=== PATIENT | female | born 1990 | race Caucasian/White ===

== ENCOUNTER 2023-12-30 13:56 | Emergency (ER) | payer BC, SELFPAY ==
--- NOTE | ~2023-12-30 | XR_ITS ---
EXAMINATION: XR chest 2V DATE: 12/30/2023 14:48 INDICATION: Productive cough and weakness TECHNIQUE: PA and lateral views of the chest were obtained. COMPARISON: None FINDINGS: The lungs are clear with no focal airspace opacities, pulmonary edema, pleural effusion or pneumothor ax. The cardiomediastinal silhouette is normal. Visualized bones and soft tissues are unremarkable. IMPRESSION: 1. Normal chest radiograph. Reviewed, dictated and finalized at location A. IMPRESSION: 1. Normal chest radiograph.
--- NOTE | 2023-12-30 13:57 | ED.URI ---
HPI - URI/Sore Throat General Chief Complaint: Upper Respiratory Infection Stated Complaint: Cough/feels weak Time Seen by Provider: 12/30/23 13:57 Source: patient Mode of arrival: ambulatory Limitations: no limitations History of Present Illness HPI Narrative: Jewell is a 33-year-old female patient presenting to clinic today with complaints of cough and feeling weak. She reports that she has a productive cough with some brown phlegm and a sore throat. Does have some chest heaviness but denies any chest pain. Denies any shortness of breath. Has this heaviness sensation in her right shoulder mid to low back and to the left side of her chest. Denies any recent injury. Denies any fever, chills, body aches. Denies any abdominal pain or urinary symptoms. Denies heavy menses. Last menstrual period was December 06. She denies any chance of . Rates the discomfort in her throat and heaviness a 3/10. No new changes in medications. Has had exposure to influenza B last week. No cardiac history, heavy menses, electrolyte imbalance, or hypoglycemia. MD elicited complaint: cough, sore throat and other (Weakness) Related Data Home Medications Medication Instructions Recorded Confirmed escitalopram oxalate 10 mg tablet 20 mg PO BID 02/25/23 12/30/23 eszopiclone 2 mg tablet 2 mg PO ONCE 02/25/23 12/30/23 lamotrigine 100 mg tablet 150 mg PO DAILY 02/25/23 12/30/23 prazosin 1 mg capsule 2 mg PO DAILY 02/25/23 12/30/23 dextromethorphan IR 45 2 tablet PO DAILY 12/30/23 12/30/23 mg-bupropion ER 105 mg biphasic tablet (Auvelity) Allergies Allergy/AdvReac Type Severity Reaction Status Date / Time No Known Allergies Allergy Verified 12/30/23 14:18 Review of Systems Review of Systems: Pertinent positives per HPI. Patient denies any rash, headache, visual changes, dizziness, shortness of breath, chest pain, palpitations, nausea, vomiting, diarrhea, constipation, abdominal pain, or any urinary issues. [facility] Social History Social History (Updated 02/25/23 @ 10:59 by Savannah Cedeño MA) Smoking status: Never smoker Alcohol intake: current Substance use: never Substance use type: does not use Lack of Transportation: No Lack of Food: Never True Current Housing: I Have Housing Concerned About Future Housing: No Difficulty Paying Gas/Electric Bills: No Difficulty Paying for Meds: No Currently Unemployed: No Education: Bachelor's Degree Difficulty w/ Childcare or Family Care: No Living arrangements: alone Occupation/Education: occupation Gender identity (if verbalized by the patient): Female Sexual Orientation (if Verbalized by the Patient): Straight or Heterosexual Comments At the time of my signature, I reviewed and agree with the nursing past medical, surgical, social, and family history. There is no relevant family history pertinent to the patient complaint. Exam Narrative: General: Well-developed, well nourished, in no apparent distress Head: Normocephalic, atraumatic Eyes: Pupils equally round and reactive to light bilaterally, EOM intact, sclera and conjunctive clear, no discharge, lids normal Ears: TMs intact and clear, ear canals clear, no drainage, grossly hearing normal. Nose: Nares patent, no discharge, no inflammation, no sinus tenderness. Mouth: Oral pharynx without lesions or masses, good dentition, MMM. Neck: Supple, trachea midline, no enlargement of anterior or posterior cervical nodes, no thyroid masses or goiter palpable. Cardio: Regular rate and rhythm, s1 and s2 normal, no murmur appreciated. Resp: Clear to auscultation bilaterally, no rhonchi, rales, wheezing or rubs Course Course Emergency Course: Portions of this record may have been created with voice recognition software. Level of Care: Express Care Visit Vital Signs Vital signs: Vital Signs Temperature 36.6 C 12/30/23 14:22 Pulse Rate 99 12/30/23 14:22 Respiratory Rate 16 05
[2023-12-30 14:22] VITALS: BP 107/71; PULSE 99; RESP 16; TEMP 36.6; O2SAT 99
[2023-12-30 14:44] LABS: Glucose Point of Care 115 mg/dl (65-105)
== END 2023-12-30 15:15 | disposition home or self-care (01) ==
PROVIDERS: Emergency Provider Nurse Practitioner Family; PCP Family Medicine
DX: B34.9 Viral infection, unspecified (principal); J02.9 Acute pharyngitis, unspecified; J06.9 Acute upper respiratory infection, unspecified; Z20.822 Contact with and (suspected) exposure to COVID-19
CPT/HCPCS: 71046; 82948; 87081; 87426; 87804; 87880; 99213; G0463

== ENCOUNTER 2025-05-13 13:17 | Outpatient (CLI) | payer BC, SELFPAY ==
--- NOTE | ~2025-05-13 | US_ITS ---
EXAMINATION: US OB <= 14 weeks fetus DATE: 05/13/2025 13:48 INDICATION: Uncertain dating of during first trimester TECHNIQUE: Real-time pelvic ultrasound utilizing transabdominal probe was performed. The interpreting radiologist was not present for the study. COMPARISON: None. FINDINGS: The uterus measures 11.5 x 5.8 x 9.6 cm. There is an intrauterine gestational sac. A yolk sac and pole are identified. The crown rump length measures 3.4 cm, which correlates with an estimated gestational age of 10 weeks and 2 days. heart motion is identified measuring 159 beats per minute (bpm) by M-mode Doppler. The right and left ovaries are not visualized. There is no free fluid in the pelvis. IMPRESSION: 1. Single living fetus with heart rate of 159 bpm. 2. Gestational age by ultrasound of 10 weeks 2 day(s) +/- 6 day(s) with ultrasound estimated date of delivery (NICOLASA) of 12/07/2025. Reviewed, dictated and finalized at location A. IMPRESSION: 1. Single living fetus with heart rate of 159 bpm. 2. Gestational age by ultrasound of 10 weeks 2 day(s) +/- 6 day(s) with ultras ound estimated date of delivery (NICOLASA) of 12/07/2025.
== END 2025-05-13 13:18 | disposition home or self-care (01) ==
LOC: MICIMG 13:18
PROVIDERS: PCP Family Medicine
DX: Z36.87 Encounter for antenatal screening for uncertain dates (principal)
CPT/HCPCS: 76801

== ENCOUNTER 2025-06-03 19:04 | Emergency (ER) | payer BC, SELFPAY ==
--- OUTSIDE RECORDS SUMMARY | 2001-10-11 03:30 | XMS_ITS | Continuity of Care Document ---
Author Organization [facility] Address [address] [place] [address] [address] [place] [address] Phone Care Team Providers Care Office Spec Name Role Phone Misha Kline Unavailable Unavailable Advance Directives Directive Yes / No Effective Date File Name No Information Encounters Encounter Description Practice Location Reason(s) For Visit Diagnoses Date Provider Providers Copied on Encounter [facility], [address], [place], [place], [id number], [place] tel:[phone] [facility] No Information 2 Raisa Cabral. [address], [address], [place], [place], [facility], [place]. tel:[phone] Referring Provider: [facility] [address] [place] [address], [place], [place], [facility]. tel:[phone] Family History Family Member Type Diagnosis Age At Onset No Information Payers Payer name Insurance type Covered constitution party ID Authoriza tion(s) No Information Social History Type Description Quantity Date Captured Comments Sex Female Smoking Status No Information Chief Complaint And Reason For Visit No Information Reason For Referral Reason For Referral No Information History Of Present Illness Encounter Date Complaint History Of Prese nt Illness No Information Functional Status Date Functional Assessmen t No Information Instructions Date Instruction Additional Infor mation No Information Assessments Type Assessment Date No Information Patient Care Teams Name Effective Dates (start - stop) Status Members No Information
--- OUTSIDE RECORDS SUMMARY | 2025-05-31 08:30 | XMS_ITS ---
Author Organization [facility] [employer] [facility] Address [facility] [address] [facility] [address] [place] [address] Care Team Providers Care Mid Teacher Name Role Phone Kal CHOU, Marco Primary Care Provider UnavailBernard Webster Unavailable [phone] REASON FOR VISIT 1 month f/u Social History Sex Assigned At : Social History Observation Description Sex Assigned At Female Encounters Encounter Location Date Provider Diagnosis [facility] [id number] [facility] [address] [place] [address] 05/31/2025 Bernard Langley Plan Of Treatment No Information Progress Notes * FILI CHESTER RDOB:1990 (35 yo F)Acc No.[id number]:05/31/2025 Patient: FILI TOLENTINO Provider: PADMA HENDERSON :1990 A ge:35 Y S ex:Female Date:05/31/2025 Address:[address] [place], [place] [id number] Pcp:Marco Bowden MD Subjective: * Chief Complaints: * 1 month f/u * Electronic signature of PADMA Diaz on 06/03/2025 at 07:28 PM CDT Sign off status: Pending * Provider: PADMA HENDERSON Date: Generated for Printi ng/Faxing/eTransmitting on: 07:28 PM CDT
[2025-06-03 19:15] VITALS: BP 112/71; PULSE 83; RESP 18; TEMP 36.4; O2SAT 98
--- OUTSIDE RECORDS SUMMARY | 2025-06-03 19:28 | XMS_ITS | Clinical Summary ---
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[employer] Gender Identity Not on file Sexual Orientation Not on file Plan of Treatment Health Maintenance Due Date Last Done Comments Hepatitis C Virus (HCV) Screening 1990 TdaP Immunization 1990 Hepatitis B Immunization (1 of 3 - 19+ 3-dose series) 2010 Pap Smear 2012 Human Papillomavirus (HPV) Immunization (1 - 3-dose SCDM series) 2018 Cervical Cancer Screening (CCS) 2021 HPV/Cotest 2021 Influenza Immunization (#1) 2025 SARS-COV-2 Immunization ( season) 2025 08/13/2020 Respiratory Syncytial Virus (RSV) Immunization (Adult) (1 - 1-dose 75+ series) 2066 Meningococcal Immunization (ACWY) Aged Out No longer eligible based on patient's age to complete this topic Pneumococcal Immunization Combined Aged Out No longer eligible based on patient's age to complete this topic Rotavirus Immunization Aged Out No lo nger eligible based on patient's age to complete this topic Insurance [employer] on file
--- OUTSIDE RECORDS SUMMARY | 2025-06-03 19:28 | XMS_ITS | Patient Health Record ---
Author Organization [facility] [employer] Address [address] [facility] [address] [place] [address] Care Team Providers Care Tax Accounting Manager Name Role Phone Kal CHOU, Marco Primary Care Provider Unavailab Bernard West Unavailable [phone] Bertha Kohler Unavailable [phone] Allergies Allergen (clinical drug ingredient) Drug/Non Drug Allergy documented on EMR Reaction Allergy Type Onset Date Status Gluten Gluten Unknown Allergy 12/02/2023 Active Reason For Referral No Information Medications Medication SIG (Take, Route, Frequency, Duration) Notes Start Date End Date Status Ondansetron HCl 4 MG Tablet 1 tablet Orally Once a day Active hydrOXYzine HCl 25 MG Tablet Oral 12/30/2023 Active Prazosin HCl 2 mg Capsule TAKE 1 CAPSULE BY MOUTH EVERY NIGHT AT BEDTIME daily; Duration: 30 days 08/31/2025 Active SUMAtriptan Succinate 100 MG Tablet Oral; Duration: 7 Days Not- Taking Escitalopram Oxalate 10 MG Tablet 1 tablet Oral Once a day; Duration: 90 days Active lamoTRIgine 100 MG Tablet 1 tablet Oral twice a day; Duration: 30 days 05/03/2025 Active lamoTRIgine 100 mg Tablet TAKE 1 & 1/2 TABLETS BY MOUTH DAILY; Duration: 30 Active Immunizations Vaccine Route Administration Date Status Comme nts Moderna Covid-19 Vaccine 1st dose Unknown 08/13/2020 Ad ministered Moderna Covid-19 Vaccine 1st dose Unknown 09/11/2020 Ad ministered Moderna Covid-19 Vaccine 1st dose Unknown 07/28/2021 Ad ministered Social History Tobacco Use: Social History Observation Description Date Details (start date - stop date) Never Smoker NA - NA Sex Assigned At : Social History Observation Description Sex Assigned At Female Social History Miscellaneous: Social Info Question Answer Notes Advance Care Planning Are you your own decision-maker Yes Do you have Power of Data Processing Supervisor for Health or Medi [place]? No Tobacco Use: Social Info Question Answer Notes Tobacco Control (Standard) Tobacco use: Nonsmoker Additional Details Category Social Info Options Details Migrated Social History Migrated Social History Alcohol Intake: Occasional 01/01/2021,Tobacco Years: Never smoker 01/01/2021 Problems Problem Type SNOMED Code ICD Code Onset Dates Problem Status W/U Status Risk Notes Problem Moderate recurrent major depression (43511204) Major depressive disorder, recurrent, moderate (F33.1) 4 Active confirmed Problem Generalized anxiety disorder (27753837) Generalized anxiety disorder (F41.1) 4 Active confirmed Problem Posttraumatic stress disorder (74449879) Post-traumatic stress disorder, chronic (F43.12) 4 Active confirmed Problem Insomnia disorder related to another mental disorder (58075426) Insomnia due to other mental disorder (F51.05) 4 Active confirmed Problem Panic disorder (763139754) Panic disorder [episodic paroxysmal anxiety] without agoraphobia (F41.0) 4 Active confirmed Vital Signs Heart Rate 79 /min 05/03/2025 Height-cm 151.13 cm 05/03/2025 Blood pressure diastolic 77 mm Hg 05/03/2025 Weight-kg 57.15 kg 05/03/2025 Height 59.50 in 05/03/2025 Blood pressure systolic 121 mm Hg 05/03/2025 Weight 126 lbs 05/03/2025 BMI 25.02 kg/m2 05/03/2025 Encounters Encounter Location Date Provider Diagnosis [employer] [address] [address] 06/06/2024 Bernard Langley Panic disorder [episodic paroxysmal anxiety] without agoraphobia F41.0 ; Major depressive disorder, recurrent, moderate F33.1 ; Post-traumatic stress disorder, chronic F43.12 ; Generalized anxiety disorder F41.1 and Insomnia due to other mental disorder F51.05 [employer] [address] [place] [address] 07/04/2024 Bernard Langley Panic disorder [episodic paroxysmal anxiety] without agoraphobia F41.0 ; Major depressive disorder, recurrent, moderate F33.1 ; Post-traumatic stress disorder, chronic F43.12 ; Generalized anxiety disorder F41.1 and Insomnia due to other mental disorder F51.05 [facility], [place] [address] [place] [address] 08/10/2024 Bernard Langley Panic disorder [episodic paroxysmal anxiety] without agoraphobia F41.0 ; Major depressive disorder, recurrent, moderate F33.1 ; Post-traumatic stress disorder, chronic F43.12 ; Generalized anxiety disorder F41.1 and Insomnia due to other mental disorder F51.05 [facility], [place] [address] [place] [address] 09/07/2024 Bernard Langley [place] [id number] [place] [address] 09/10/2024 Bernard Langley Panic disorder [episodic paroxysmal anxiety] without agoraphobia F41.0 ; Major depressive disorder, recurrent, moderate F33.1 ; Post-traumatic stress disorder, chronic F43.12 ; Generalized anxiety disorder F41.1 and Insomnia due to other mental disorder F51.05 [facility] [employer], [place] [address] [place] [address] 10/08/2024 Bernard Langley Panic disorder [episodic paroxysmal anxiety] without agoraphobia F41.0 ; Major depressive disorder, recurrent, moderate F33.1 ; Post-traumatic stress disorder, chronic F43.12 ; Generalized anxiety disorder F41.1 and Insomnia due to other mental disorder F51.05 [facility] [place] [address] [place] [address] 11/02/2024 Bernard Langley Panic disorder [episodic paroxysmal anxiety] without agoraphobia F41.0 ; Major depressive disorder, recurrent, moderate F33.1 ; Post-traumatic stress disorder, chronic F43.12 ; Generalized anxiety disorder F41.1 and Insomnia due to other mental disorder F51.05 [facility] [employer], [place] [address] [place] [address] 12/07/2024 Bernard Langley Insomnia due to othe r mental disorder F51.05 ; Major depressive disorder, recurrent, moderate F33.1 ; Panic disorder [episodic paroxysmal anxiety] without agoraphobia F41.0 ; Generalized anxiety disorder F41.1 ; Encounter for screening for depression Z13.31 ; Encounter for screening for cardiovascular disorders Z13.6 and Post-traumatic stress disorder, chronic F43.12 [facility] [employer] [address] [address] 01/04/2025 Bernard Langley Insomnia due to othe r mental disorder F51.05 ; Major depressive disorder, recurrent, moderate F33.1 ; Panic disorder [episodic paroxysmal anxiety] without agoraphobia F41.0 ; Generalized anxiety disorder F41.1 ; Encounter for screening for depression Z13.31 ; Encounter for screening for cardiovascular disorders Z13.6 and Post-traumatic stress disorder, chronic F43.12 [facility] [employer] [address] [address] 02/08/2025 Bernard Langley Insomnia due to othe r mental disorder F51.05 ; Major depressive disorder, recurrent, moderate F33.1 ; Panic disorder [episodic paroxysmal anxiety] without agoraphobia F41.0 ; Generalized anxiety disorder F41.1 ; Encounter for screening for depression Z13.31 ; Encounter for screening for cardiovascular disorders Z13.6 and Post-traumatic stress disorder, chronic F43.12 [facility] [employer] [address] [address] 04/05/2025 Bernard Langley Insomnia due to othe r mental disorder F51.05 ; Major depressive disorder, recurrent, moderate F33.1 ; Panic disorder [episodic paroxysmal anxiety] without agoraphobia F41.0 ; Generalized anxiety disorder F41.1 ; Post-traumatic stress disorder, chronic F43.12 and Less than 8 weeks gestation of Z3A.01 [facility] [employer] [address] [address] 05/03/2025 Bernard Langley Insomnia due to othe r mental disorder F51.05 ; Major depressive disorder, recurrent, moderate F33.1 ; Panic disorder [episodic paroxysmal anxiety] without agoraphobia F41.0 ; Generalized anxiety disorder F41.1 ; Post-traumatic stress disorder, chronic F43.12 and 9 weeks gestation [address] Z3A.09 [facility], [employer] [address] [place] [address] 06/18/2024 Bernard Langley Insomnia due to othe r mental disorder F51.05 [facility], [employer] [address] [place] [address] 07/04/[address] [facility], [employer] [address] [place] [address] 07/05/2024 Bernard Langley Insomnia due to othe r mental disorder F51.05 [facility], [employer] [address] [place] [address] 09/18/2024 Bernard Langley Generalized anxiety disorder F41.1 [facility], [employer] [address] [place] [address] 06/13/[address] [facility], [employer] [address] [place] [address] 06/14/2024 Bernard Langley Insomnia due to othe r mental disorder F51.05 [facility], [employer] [address] [place] [address] 07/15/[address] [facility], [employer] [address] [place] [address] 09/07/[address] [facility], [employer] [address] [place] [address] 09/07/[address] [facility], [employer] [address] [place] [address] 09/17/2024 Bernard Langley Major depressive disorder, recurrent, moderate F33.1 [facility], [employer] [address] [place] [address] 09/17/2024 Bernard Langley Insomnia due to othe r mental disorder F51.05 [facility], [employer] [address] [place] [address] 09/17/2024 Bernard Langley Major depressive disorder, recurrent, moderate F33.1 [facility], [employer] [address] [place] [address] 09/17/2024 Bernard Langley Post-traumatic stres s disorder, chronic F43.12 [facility], [employer] [address] [place] [address] 10/16/2024 Bernard Langley Insomnia due to othe r mental disorder F51.05 and Major depressive disorder, recurrent, moderate F33.1 [facility] [address] [place] [address] 11/14/2024 Bernard Langley Insomnia due to othe r mental disorder F51.05 and Major depressive disorder, recurrent, moderate F33.1 [facility], [employer] [address] [place] [address] 12/12/2024 Bernard Langley Generalized anxiety disorder F41.1 ; Major depressive disorder, recurrent, moderate F33.1 and Insomnia due to other mental disorder F51.05 [facility], [place] [address] [facility] [address] [place] [address] 02/26/2025 Bernard Langley Major depressive disorder, recurrent, moderate F33.1 and Post-traumatic stress disorder, chronic F43.12 [facility], [place] [address] [facility] [address] [place] [address] 03/04/2025 Bertha Lionelnehal Insomnia due to othe r mental disorder F51.05 [facility], [employer] [address] [facility] [address] [place] [address] 04/10/[address] [facility], [employer] [address] [address] 04/18/[address] [facility], [employer] [address] [facility] [address] [place] [address] 04/19/[address] [facility], [employer] [address] [facility] [address] [place] [address] 04/19/2025 Bernard Langley Assessments Encounter Date Diagnosis (ICD Code) Assessment Notes Treatment Notes Treatment Clinical Notes Section Notes 03/04/2025 Insomnia due to other mental disorder (ICD-10 - F51.05) 02/26/2025 Major depressive disorder, recurrent, moderate (ICD-10 - F33.1) 06/14/2024 Insomnia due to other mental disorder (ICD-10 - F51.05) 07/04/2024 Panic disorder [episodic paroxysmal anxiety] without agoraphobia (ICD-10 - F41.0) stable 1. Depression: - Patient reports worsening of depressive symptoms in the last few weeks, triggered by changes in work schedules and lack of quality time with partner. - Continue current medications: Lamotrigine 150 mg daily, Abilify twice a day, Lexapro 10 mg daily. Plan: - Consider adding digital therapeutic miranda MEETiiNn for cognitive behavioral therapy, if patient is interested. Send prescription upon patient's request. 2. Anxiety: - Patient reports increased anxiety due to mother's recent surgery and hospitalizatio n. - Continue current medications: Prazosin 2 mg at bedtime. Plan: - Encourage patient to utilize coping strategies and consider counseling or therapy miranda Rejoin for additional support. 3. Insomnia: - Continue current medication: Lunesta 2 mg at bedtime. Plan: - Encourage patient to maintain good sleep hygiene and consider counseling or therapy miranda Rejoin for additional support. 4. Medication Refills: Plan: - Refill all current medications: Lamotrigine, Abilify, Prazosin, Lexapro, and Lunesta. - Coordinate with [place] [facility] [place] pharmacies for medication delivery. 5. Nasal [employer] Pre-authorizat ion: - Patient inquired about pre-authorizat ion for nasal spray. Plan: - Confirm approval and coordinate with pharmacy for medication delivery once approved. 6. Counseling: - Patient reports difficulty scheduling counseling sessions due to work schedule. Plan: - Discuss the option of using the [employer] miranda for cognitive behavioral therapy and emotional functional training. Send prescription upon patient's request. 7. Follow-up: - Schedule a follow-up appointment to assess the effectiveness of the current treatment plan and make any necessary adjustments. 07/05/2024 Insomnia due to other mental disorder (ICD-10 - F51.05) 09/17/2024 Major depressive disorder, recurrent, moderate (ICD-10 - F33.1) 09/17/2024 Insomnia due to other mental disorder (ICD-10 - F51.05) 09/17/2024 Major depressive disorder, recurrent, moderate (ICD-10 - F33.1) 09/17/2024 Post-traumatic stress disorder, chronic (ICD-10 - F43.12) 10/16/2024 Insomnia due to other mental disorder (ICD-10 - F51.05) 12/07/2024 Insomnia due to other mental disorder (ICD-10 - F51.05) 12/12/2024 Generalized anxiety disorder (ICD-10 - F41.1) 01/04/2025 Insomnia due to other mental disorder (ICD-10 - F51.05) 05/03/2025 Insomnia due to other mental disorder (ICD-10 - F51.05) 04/05/2025 Major depressive disorder, recurrent, moderate (ICD-10 - F33.1) lamotrigine 150mg daily 04/05/2025 Insomnia due to other mental disorder (ICD-10 - F51.05) 02/08/2025 Insomnia due to other mental disorder (ICD-10 - F51.05) 11/14/2024 Insomnia due to other mental disorder (ICD-10 - F51.05) 09/18/2024 Generalized anxiety disorder (ICD-10 - F41.1) 08/10/2024 Panic disorder [episodic paroxysmal anxiety] without agoraphobia (ICD-10 - F41.0) stable 1. Major Depressive Disorder (MDD): - Continue lamotrigine 150 mg daily and Auvelity twice a day for depression management - Monitor patient's mood and suicidal thoughts closely Plan: - Resubmit Spravato approval request with clear documentation of DSM-5 criteria, depression rating scale (PHQ-9), and absence of substance use disorder - Consider referral to a therapist or support group for additional emotional support - Provide support and reassurance 2. Generalized Anxiety Disorder (IWCHO): - Continue Lexapro 10 mg daily for anxiety management Plan: - Encourage patient to practice stress reduction techniques, such as deep breathing exercises, mindfulness, and physical activity 3. Insomnia: - Continue Lunesta 2 mg at bedtime for sleep management Plan: - Monitor nightmares and sleep disturbances - Consider referral to a sleep specialist if symptoms persist 4. Insurance appeal for Spravato: Plan: - Resubmit appeal with clear documentation of patient's persistent depression since age 11, impairing their ability to work and complete daily tasks at home, and history of failed multiple medications Follow-up: - Schedule a follow-up appointment in 4-6 weeks to monitor patient's progress and response to treatment - Encourage patient to contact the clinic if there are any issues with medication refills or if symptoms worsen 06/18/2024 Insomnia due to other mental disorder (ICD-10 - F51.05) 11/02/2024 Panic disorder [episodic paroxysmal anxiety] without agoraphobia (ICD-10 - F41.0) stable 10/08/2024 Panic disorder [episodic paroxysmal anxiety] without agoraphobia (ICD-10 - F41.0) stable 09/10/2024 Panic disorder [episodic paroxysmal anxiety] without agoraphobia (ICD-10 - F41.0) stable 06/06/2024 Panic disorder [episodic paroxysmal anxiety] without agoraphobia (ICD-10 - F41.0) stable 1. Lyme disease: - Patient was recently diagnosed with Lyme disease and is currently on antibiotics. - Patient reported dizziness, fatigue, and headaches, along with a bullseye rash on her leg from a tick bite. Plan: - Continue antibiotics as prescribed by her primary care physician. - Follow up with the primary care physician in July or sooner if symptoms do not improve. 2. Major Depressive Disorder: - Patient experienced increased depressive symptoms last week due to being alone and work-related stress. - Currently on lamotrigine and Auvelity. Plan: - Continue lamotrigine 150 mg daily (half in the morning and half at night). - Continue Auvelity twice a day. - Reevaluate in one month or sooner if symptoms worsen. - Consider Spravato (esketamine) nasal spray treatment if patient decides to pursue it. 3. Anxiety: - Patient is currently on escitalopram for anxiety management. Plan: - Continue escitalopram 10 mg daily. - Reevaluate in one month or sooner if symptoms worsen. 4. Insomnia: - Patient is currently using Lunesta for insomnia management. Plan: - Continue Lunesta 2 mg at bedtime. - Reevaluate in one month or sooner if symptoms worsen. 5. Nightmares: - Patient is currently on prazosin for nightmare management. Plan: - Continue prazosin 2 mg at bedtime. - Reevaluate in one month or sooner if symptoms worsen. 6. Counseling: - Patient has not yet looked into counseling but is considering Employee Assistance Program (EAP) services. Plan: - Encourage the patient to explore counseling options through EAP services. - Reevaluate in one month or sooner if needed. 7. Spravato (esketamine) nasal spray treatment: - Patient expressed interest in Spravato treatment for depression. - Her supervisor [employer] is supportive and willing to accommodate her schedule for treatment. Plan: - If the patient decides to pursue Spravato treatment, complete prior authorization paperwork and submit it with her past history. - Discuss treatment frequency and scheduling with the patient. 11/14/2024 Major depressive disorder, recurrent, moderate (ICD-10 - F33.1) 06/06/2024 Major depressive disorder, recurrent, moderate (ICD-10 - F33.1) auvelity 45mg -105mg bid, lamotrigine 150mg daily 1. Lyme disease: - Patient was recently diagnosed with Lyme disease and is currently on antibiotics. - Patient reported dizziness, fatigue, and headaches, along with a bullseye rash on her leg from a tick bite. Plan: - Continue antibiotics as prescribed by her primary care physician. - Follow up with the primary care physician in July or sooner if symptoms do not improve. 2. Major Depressive Disorder: - Patient experienced increased depressive symptoms last week due to being alone and work-related stress. - Currently on lamotrigine and Auvelity. Plan: - Continue lamotrigine 150 mg daily (half in the morning and half at night). - Continue Auvelity twice a day. - Reevaluate in one month or sooner if symptoms worsen. - Consider Spravato (esketamine) nasal spray treatment if patient decides to pursue it. 3. Anxiety: - Patient is currently on escitalopram for anxiety management. Plan: - Continue escitalopram 10 mg daily. - Reevaluate in one month or sooner if symptoms worsen. 4. Insomnia: - Patient is currently using Lunesta for insomnia management. Plan: - Continue Lunesta 2 mg at bedtime. - Reevaluate in one month or sooner if symptoms worsen. 5. Nightmares: - Patient is currently on prazosin for nightmare management. Plan: - Continue prazosin 2 mg at bedtime. - Reevaluate in one month or sooner if symptoms worsen. 6. Counseling: - Patient has not yet looked into counseling but is considering Employee Assistance Program (EAP) services. Plan: - Encourage the patient to explore counseling options through EAP services. - Reevaluate in one month or sooner if needed. 7. Spravato (esketamine) nasal spray treatment: - Patient expressed interest in Spravato treatment for depression. - Her supervisor [employer] is supportive and willing to accommodate her schedule for treatment. Plan: - If the patient decides to pursue Spravato treatment, complete prior authorization paperwork and submit it with her past history. - Discuss treatment frequency and scheduling with the patient. 09/10/2024 Major depressive disorder, recurrent, moderate (ICD-10 - F33.1) auvelity 45mg -105mg bid, lamotrigine 150mg daily 10/08/2024 Major depressive disorder, recurrent, moderate (ICD-10 - F33.1) auvelity 45mg -105mg bid, lamotrigine 150mg daily 08/10/2024 Major depressive disorder, recurrent, moderate (ICD-10 - F33.1) PHQ 9 SCORE =14 auvelity 45mg -105mg bid, lamotrigine 150mg daily 1. Major Depressive Disorder (MDD): - Continue lamotrigine 150 mg daily and Auvelity twice a day for depression management - Monitor patient's mood and suicidal thoughts closely Plan: - Resubmit Spravato approval request with clear documentation of DSM-5 criteria, depression rating scale (PHQ-9), and absence of substance use disorder - Consider referral to a therapist or support group for additional emotional support - Provide support and reassurance 2. Generalized Anxiety Disorder (WICHO): - Continue Lexapro 10 mg daily for anxiety management Plan: - Encourage patient to practice stress reduction techniques, such as deep breathing exercises, mindfulness, and physical activity 3. Insomnia: - Continue Lunesta 2 mg at bedtime for sleep management Plan: - Monitor nightmares and sleep disturbances - Consider referral to a sleep specialist if symptoms persist 4. Insurance appeal for Spravato: Plan: - Resubmit appeal with clear documentation of patient's persistent depression since age 11, impairing their ability to work and complete daily tasks at home, and history of failed multiple medications Follow-up: - Schedule a follow-up appointment in 4-6 weeks to monitor patient's progress and response to treatment - Encourage patient to contact the clinic if there are any issues with medication refills or if symptoms worsen 04/05/2025 Panic disorder [episodic paroxysmal anxiety] without agoraphobia (ICD-10 - F41.0) stable 02/08/2025 Major depressive disorder, recurrent, moderate (ICD-10 - F33.1) auvelity 45mg -105mg bid, lamotrigine 150mg daily 05/03/2025 Panic disorder [episodic paroxysmal anxiety] without agoraphobia (ICD-10 - F41.0) stable 05/03/2025 Major depressive disorder, recurrent, moderate (ICD-10 - F33.1) lamotrigine 100mg twice daily 12/12/2024 Major depressive disorder, recurrent, moderate (ICD-10 - F33.1) 01/04/2025 Major depressive disorder, recurrent, moderate (ICD-10 - F33.1) auvelity 45mg -105mg bid, lamotrigine 150mg daily 12/07/2024 Major depressive disorder, recurrent, moderate (ICD-10 - F33.1) auvelity 45mg -105mg bid, lamotrigine 150mg daily 10/16/2024 Major depressive disorder, recurrent, moderate (ICD-10 - F33.1) 07/04/2024 Major depressive disorder, recurrent, moderate (ICD-10 - F33.1) auvelity 45mg -105mg bid, lamotrigine 150mg daily 1. Depression: - Patient reports worsening of depressive symptoms in the last few weeks, triggered by changes in work schedules and lack of quality time with partner. - Continue current medications: Lamotrigine 150 mg daily, Abilify twice a day, Lexapro 10 mg daily. Plan: - Consider adding digital therapeutic miranda Rejoyn for cognitive behavioral therapy, if patient is interested. Send prescription upon patient's request. 2. Anxiety: - Patient reports increased anxiety due to mother's recent surgery and hospitalizatio n. - Continue current medications: Prazosin 2 mg at bedtime. Plan: - Encourage patient to utilize coping strategies and consider counseling or therapy miranda Rejoin for additional support. 3. Insomnia: - Continue current medication: Lunesta 2 mg at bedtime. Plan: - Encourage patient to maintain good sleep hygiene and consider counseling or therapy miranda Rejoin for additional support. 4. Medication Refills: Plan: - Refill all current medications: Lamotrigine, Abilify, Prazosin, Lexapro, and Lunesta. - Coordinate with [place] [facility] for medication delivery. 5. Nasal [facility]pex Pre-authorizat ion: - Patient inquired about pre-authorizat ion for nasal spray. Plan: - Confirm approval and coordinate with pharmacy for medication delivery once approved. 6. Counseling: - Patient reports difficulty scheduling counseling sessions due to work schedule. Plan: - Discuss the option of using the Helpa miranda for cognitive behavioral therapy and emotional functional training. Send prescription upon patient's request. 7. Follow-up: - Schedule a follow-up appointment to assess the effectiveness of the current treatment plan and make any necessary adjustments. 02/26/2025 Post-traumatic stress disorder, chronic (ICD-10 - F43.12) 11/02/2024 Major depressive disorder, recurrent, moderate (ICD-10 - F33.1) auvelity 45mg -105mg bid, lamotrigine 150mg daily 07/04/2024 Post-traumatic stress disorder, chronic (ICD-10 - F43.12) 1. Depression: - Patient reports worsening of depressive symptoms in the last few weeks, triggered by changes in work schedules and lack of quality time with partner. - Continue current medications: Lamotrigine 150 mg daily, Abilify twice a day, Lexapro 10 mg daily. Plan: - Consider adding digital therapeutic miranda MEETiiNn for cognitive behavioral therapy, if patient is interested. Send prescription upon patient's request. 2. Anxiety: - Patient reports increased anxiety due to mother's recent surgery and hospitalizatio n. - Continue current medications: Prazosin 2 mg at bedtime. Plan: - Encourage patient to utilize coping strategies and consider counseling or therapy miranda Rejoin for additional support. 3. Insomnia: - Continue current medication: Lunesta 2 mg at bedtime. Plan: - Encourage patient to maintain good sleep hygiene and consider counseling or therapy miranda Rejoin for additional support. 4. Medication Refills: Plan: - Refill all current medications: Lamotrigine, Abilify, Prazosin, Lexapro, and Lunesta. - Coordinate with [place] [facility] for medication delivery. 5. Nasal [facility] Pre-authorizat ion: - Patient inquired about pre-authorizat ion for nasal spray. Plan: - Confirm approval and coordinate with pharmacy for medication delivery once approved. 6. Counseling: - Patient reports difficulty scheduling counseling sessions due to work schedule. Plan: - Discuss the option of using the Rejoin miranda for cognitive behavioral therapy and emotional functional training. Send prescription upon patient's request. 7. Follow-up: - Schedule a follow-up appointment to assess the effectiveness of the current treatment plan and make any necessary adjustments. 12/07/2024 Panic disorder [episodic paroxysmal anxiety] without agoraphobia (ICD-10 - F41.0) stable 12/12/2024 Insomnia due to other mental disorder (ICD-10 - F51.05) 05/03/2025 Generalized anxiety disorder (ICD-10 - F41.1) 01/04/2025 Panic disorder [episodic paroxysmal anxiety] without agoraphobia (ICD-10 - F41.0) stable 04/05/2025 Generalized anxiety disorder (ICD-10 - F41.1) 02/08/2025 Panic disorder [episodic paroxysmal anxiety] without agoraphobia (ICD-10 - F41.0) stable 08/10/2024 Post-traumatic stress disorder, chronic (ICD-10 - F43.12) 1. Major Depressive Disorder (MDD): - Continue lamotrigine 150 mg daily and Auvelity twice a day for depression management - Monitor patient's mood and suicidal thoughts closely Plan: - Resubmit Spravato approval request with clear documentation of DSM-5 criteria, depression rating scale (PHQ-9), and absence of substance use disorder - Consider referral to a therapist or support group for additional emotional support - Provide support and reassurance 2. Generalized Anxiety Disorder (WICHO): - Continue Lexapro 10 mg daily for anxiety management Plan: - Encourage patient to practice stress reduction techniques, such as deep breathing exercises, mindfulness, and physical activity 3. Insomnia: - Continue Lunesta 2 mg at bedtime for sleep management Plan: - Monitor nightmares and sleep disturbances - Consider referral to a sleep specialist if symptoms persist 4. Insurance appeal for Spravato: Plan: - Resubmit appeal with clear documentation of patient's persistent depression since age 11, impairing their ability to work and complete daily tasks at home, and history of failed multiple medications Follow-up: - Schedule a follow-up appointment in 4-6 weeks to monitor patient's progress and response to treatment - Encourage patient to contact the clinic if there are any issues with medication refills or if symptoms worsen 11/02/2024 Post-traumatic stress disorder, chronic (ICD-10 - F43.12) 10/08/2024 Post-traumatic stress disorder, chronic (ICD-10 - F43.12) 09/10/2024 Post-traumatic stress disorder, chronic (ICD-10 - F43.12) 06/06/2024 Post-traumatic stress disorder, chronic (ICD-10 - F43.12) 1. Lyme disease: - Patient was recently diagnosed with Lyme disease and is currently on antibiotics. - Patient reported dizziness, fatigue, and headaches, along with a bullseye rash on her leg from a tick bite. Plan: - Continue antibiotics as prescribed by her primary care physician. - Follow up with the primary care physician in July or sooner if symptoms do not improve. 2. Major Depressive Disorder: - Patient experienced increased depressive symptoms last week due to being alone and work-related stress. - Currently on lamotrigine and Auvelity. Plan: - Continue lamotrigine 150 mg daily (half in the morning and half at night). - Continue Auvelity twice a day. - Reevaluate in one month or sooner if symptoms worsen. - Consider Spravato (esketamine) nasal spray treatment if patient decides to pursue it. 3. Anxiety: - Patient is currently on escitalopram for anxiety management. Plan: - Continue escitalopram 10 mg daily. - Reevaluate in one month or sooner if symptoms worsen. 4. Insomnia: - Patient is currently using Lunesta for insomnia management. Plan: - Continue Lunesta 2 mg at bedtime. - Reevaluate in one month or sooner if symptoms worsen. 5. Nightmares: - Patient is currently on prazosin for nightmare management. Plan: - Continue prazosin 2 mg at bedtime. - Reevaluate in one month or sooner if symptoms worsen. 6. Counseling: - Patient has not yet looked into counseling but is considering Employee Assistance Program (EAP) services. Plan: - Encourage the patient to explore counseling options through EAP services. - Reevaluate in one month or sooner if needed. 7. Spravato (esketamine) nasal spray treatment: - Patient expressed interest in Spravato treatment for depression. - Her supervisor [employer] is supportive and willing to accommodate her schedule for treatment. Plan: - If the patient decides to pursue Spravato treatment, complete prior authorization paperwork and submit it with her past history. - Discuss treatment frequency and scheduling with the patient. 06/06/2024 Generalized anxiety disorder (ICD-10 - F41.1) 1. Lyme disease: - Patient was recently diagnosed with Lyme disease and is currently on antibiotics. - Patient reported dizziness, fatigue, and headaches, along with a bullseye rash on her leg from a tick bite. Plan: - Continue antibiotics as prescribed by her primary care physician. - Follow up with the primary care physician in July or sooner if symptoms do not improve. 2. Major Depressive Disorder: - Patient experienced increased depressive symptoms last week due to being alone and work-related stress. - Currently on lamotrigine and Auvelity. Plan: - Continue lamotrigine 150 mg daily (half in the morning and half at night). - Continue Auvelity twice a day. - Reevaluate in one month or sooner if symptoms worsen. - Consider Spravato (esketamine) nasal spray treatment if patient decides to pursue it. 3. Anxiety: - Patient is currently on escitalopram for anxiety management. Plan: - Continue escitalopram 10 mg daily. - Reevaluate in one month or sooner if symptoms worsen. 4. Insomnia: - Patient is currently using Lunesta for insomnia management. Plan: - Continue Lunesta 2 mg at bedtime. - Reevaluate in one month or sooner if symptoms worsen. 5. Nightmares: - Patient is currently on prazosin for nightmare management. Plan: - Continue prazosin 2 mg at bedtime. - Reevaluate in one month or sooner if symptoms worsen. 6. Counseling: - Patient has not yet looked into counseling but is considering Employee Assistance Program (EAP) services. Plan: - Encourage the patient to explore counseling options through EAP services. - Reevaluate in one month or sooner if needed. 7. Spravato (esketamine) nasal spray treatment: - Patient expressed interest in Spravato treatment for depression. - Her supervisor [employer] is supportive and willing to accommodate her schedule for treatment. Plan: - If the patient decides to pursue Spravato treatment, complete prior authorization paperwork and submit it with her past history. - Discuss treatment frequency and scheduling with the patient. 09/10/2024 Generalized anxiety disorder (ICD-10 - F41.1) 10/08/2024 Generalized anxiety disorder (ICD-10 - F41.1) 08/10/2024 Generalized anxiety disorder (ICD-10 - F41.1) 1. Major Depressive Disorder (MDD): - Continue lamotrigine 150 mg daily and Auvelity twice a day for depression management - Monitor patient's mood and suicidal thoughts closely Plan: - Resubmit Spravato approval request with clear documentation of DSM-5 criteria, depression rating scale (PHQ-9), and absence of substance use disorder - Consider referral to a therapist or support group for additional emotional support - Provide support and reassurance 2. Generalized Anxiety Disorder (WICHO): - Continue Lexapro 10 mg daily for anxiety management Plan: - Encourage patient to practice stress reduction techniques, such as deep breathing exercises, mindfulness, and physical activity 3. Insomnia: - Continue Lunesta 2 mg at bedtime for sleep management Plan: - Monitor nightmares and sleep disturbances - Consider referral to a sleep specialist if symptoms persist 4. Insurance appeal for Spravato: Plan: - Resubmit appeal with clear documentation of patient's persistent depression since age 11, impairing their ability to work and complete daily tasks at home, and history of failed multiple medications Follow-up: - Schedule a follow-up appointment in 4-6 weeks to monitor patient's progress and response to treatment - Encourage patient to contact the clinic if there are any issues with medication refills or if symptoms worsen 02/08/2025 Generalized anxiety disorder (ICD-10 - F41.1) 04/05/2025 Post-traumatic stress disorder, chronic (ICD-10 - F43.12) 05/03/2025 Post-traumatic stress disorder, chronic (ICD-10 - F43.12) 01/04/2025 Generalized anxiety disorder (ICD-10 - F41.1) 12/07/2024 Generalized anxiety disorder (ICD-10 - F41.1) 07/04/2024 Generalized anxiety disorder (ICD-10 - F41.1) 1. Depression: - Patient reports worsening of depressive symptoms in the last few weeks, triggered by changes in work schedules and lack of quality time with partner. - Continue current medications: Lamotrigine 150 mg daily, Abilify twice a day, Lexapro 10 mg daily. Plan: - Consider adding digital therapeutic miranda Rejoyn for cognitive behavioral therapy, if patient is interested. Send prescription upon patient's request. 2. Anxiety: - Patient reports increased anxiety due to mother's recent surgery and hospitalizatio n. - Continue current medications: Prazosin 2 mg at bedtime. Plan: - Encourage patient to utilize coping strategies and consider counseling or therapy miranda Rejoin for additional support. 3. Insomnia: - Continue current medication: Lunesta 2 mg at bedtime. Plan: - Encourage patient to maintain good sleep hygiene and consider counseling or therapy miranda Rejoin for additional support. 4. Medication Refills: Plan: - Refill all current medications: Lamotrigine, Abilify, Prazosin, Lexapro, and Lunesta. - Coordinate with [place] [facility] pharmac[facility] for medication delivery. 5. Nasal [facility] Pre-authorizat ion: - Patient inquired about pre-authorizat ion for nasal spray. Plan: - Confirm approval and coordinate with pharmacy for medication delivery once approved. 6. Counseling: - Patient reports difficulty scheduling counseling sessions due to work schedule. Plan: - Discuss the option of using the Helpa miranda for cognitive behavioral therapy and emotional functional training. Send prescription upon patient's request. 7. Follow-up: - Schedule a follow-up appointment to assess the effectiveness of the current treatment plan and make any necessary adjustments. 11/02/2024 Generalized anxiety disorder (ICD-10 - F41.1) 07/04/2024 Insomnia due to other mental disorder (ICD-10 - F51.05) 1. Depression: - Patient reports worsening of depressive symptoms in the last few weeks, triggered by changes in work schedules and lack of quality time with partner. - Continue current medications: Lamotrigine 150 mg daily, Abilify twice a day, Lexapro 10 mg daily. Plan: - Consider adding digital therapeutic miranda Rejoyn for cognitive behavioral therapy, if patient is interested. Send prescription upon patient's request. 2. Anxiety: - Patient reports increased anxiety due to mother's recent surgery and hospitalizatio n. - Continue current medications: Prazosin 2 mg at bedtime. Plan: - Encourage patient to utilize coping strategies and consider counseling or therapy miranda Rejoin for additional support. 3. Insomnia: - Continue current medication: Lunesta 2 mg at bedtime. Plan: - Encourage patient to maintain good sleep hygiene and consider counseling or therapy miranda Rejoin for additional support. 4. Medication Refills: Plan: - Refill all current medications: Lamotrigine, Abilify, Prazosin, Lexapro, and Lunesta. - Coordinate with [place] [facility] pharmac[facility] for medication delivery. 5. Nasal [facility] Pre-authorizat ion: - Patient inquired about pre-authorizat ion for nasal spray. Plan: - Confirm approval and coordinate with pharmacy for medication delivery once approved. 6. Counseling: - Patient reports difficulty scheduling counseling sessions due to work schedule. Plan: - Discuss the option of using the Helpa miranda for cognitive behavioral therapy and emotional functional training. Send prescription upon patient's request. 7. Follow-up: - Schedule a follow-up appointment to assess the effectiveness of the current treatment plan and make any necessary adjustments. 12/07/2024 Encounter for screening for depression (ICD-10 - Z13.31) 01/04/2025 Encounter for screening for depression (ICD-10 - Z13.31) 05/03/2025 9 weeks gestation of (ICD-10 - Z3A.09) [email or web address] 04/05/2025 Less than 8 weeks gestation of (ICD-10 - Z3A.01) 08/10/2024 Insomnia due to other mental disorder (ICD-10 - F51.05) 1. Major Depressive Disorder (MDD): - Continue lamotrigine 150 mg daily and Auvelity twice a day for depression management - Monitor patient's mood and suicidal thoughts closely Plan: - Resubmit Spravato approval request with clear documentation of DSM-5 criteria, depression rating scale (PHQ-9), and absence of substance use disorder - Consider referral to a therapist or support group for additional emotional support - Provide support and reassurance 2. Generalized Anxiety Disorder (WICHO): - Continue Lexapro 10 mg daily for anxiety management Plan: - Encourage patient to practice stress reduction techniques, such as deep breathing exercises, mindfulness, and physical activity 3. Insomnia: - Continue Lunesta 2 mg at bedtime for sleep management Plan: - Monitor nightmares and sleep disturbances - Consider referral to a sleep specialist if symptoms persist 4. Insurance appeal for Spravato: Plan: - Resubmit appeal with clear documentation of patient's persistent depression since age 11, impairing their ability to work and complete daily tasks at home, and history of failed multiple medications Follow-up: - Schedule a follow-up appointment in 4-6 weeks to monitor patient's progress and response to treatment - Encourage patient to contact the clinic if there are any issues with medication refills or if symptoms worsen 02/08/2025 Encounter for screening for depression (ICD-10 - Z13.31) 11/02/2024 Insomnia due to other mental disorder (ICD-10 - F51.05) 10/08/2024 Insomnia due to other mental disorder (ICD-10 - F51.05) 09/10/2024 Insomnia due to other mental disorder (ICD-10 - F51.05) 06/06/2024 Insomnia due to other mental disorder (ICD-10 - F51.05) 1. Lyme disease: - Patient was recently diagnosed with Lyme disease and is currently on antibiotics. - Patient reported dizziness, fatigue, and headaches, along with a bullseye rash on her leg from a tick bite. Plan: - Continue antibiotics as prescribed by her primary care physician. - Follow up with the primary care physician in July or sooner if symptoms do not improve. 2. Major Depressive Disorder: - Patient experienced increased depressive symptoms last week due to being alone and work-related stress. - Currently on lamotrigine and Auvelity. Plan: - Continue lamotrigine 150 mg daily (half in the morning and half at night). - Continue Auvelity twice a day. - Reevaluate in one month or sooner if symptoms worsen. - Consider Spravato (esketamine) nasal spray treatment if patient decides to pursue it. 3. Anxiety: - Patient is currently on escitalopram for anxiety management. Plan: - Continue escitalopram 10 mg daily. - Reevaluate in one month or sooner if symptoms worsen. 4. Insomnia: - Patient is currently using Lunesta for insomnia management. Plan: - Continue Lunesta 2 mg at bedtime. - Reevaluate in one month or sooner if symptoms worsen. 5. Nightmares: - Patient is currently on prazosin for nightmare management. Plan: - Continue prazosin 2 mg at bedtime. - Reevaluate in one month or sooner if symptoms worsen. 6. Counseling: - Patient has not yet looked into counseling but is considering Employee Assistance Program (EAP) services. Plan: - Encourage the patient to explore counseling options through EAP services. - Reevaluate in one month or sooner if needed. 7. Spravato (esketamine) nasal spray treatment: - Patient expressed interest in Spravato treatment for depression. - Her supervisor [employer] is supportive and willing to accommodate her schedule for treatment. Plan: - If the patient decides to pursue Spravato treatment, complete prior authorization paperwork and submit it with her past history. - Discuss treatment frequency and scheduling with the patient. 02/08/2025 Encounter for screening for cardiovascular disorders (ICD-10 - Z13.6) 01/04/2025 Encounter for screening for cardiovascular disorders (ICD-10 - Z13.6) 12/07/2024 Encounter for screening for cardiovascular disorders (ICD-10 - Z13.6) 12/07/2024 Post-traumatic stress disorder, chronic (ICD-10 - F43.12) 01/04/2025 Post-traumatic stress disorder, chronic (ICD-10 - F43.12) 02/08/2025 Post-traumatic stress disorder, chronic (ICD-10 - F43.12) 08/10/2024 Other will do appeal for spravato, it was denied under medical benefit on 07/25/24 depression has been persistent for years- since age 11, impairs her ability to work at times, impairs ability to complete daily tasks at home, persistent feelings of sadness, worthless, restlessness, fatigue, loss of interest, self isolation, poor concentration, emotional dysregulation. She has tried and failed multiple medications 1. Major Depressive Disorder (MDD): - Continue lamotrigine 150 mg daily and Auvelity twice a day for depression management - Monitor patient's mood and suicidal thoughts closely Plan: - Resubmit Spravato approval request with clear documentation of DSM-5 criteria, depression rating scale (PHQ-9), and absence of substance use disorder - Consider referral to a therapist or support group for additional emotional support - Provide support and reassurance 2. Generalized Anxiety Disorder (WICHO): - Continue Lexapro 10 mg daily for anxiety management Plan: - Encourage patient to practice stress reduction techniques, such as deep breathing exercises, mindfulness, and physical activity 3. Insomnia: - Continue Lunesta 2 mg at bedtime for sleep management Plan: - Monitor nightmares and sleep disturbances - Consider referral to a sleep specialist if symptoms persist 4. Insurance appeal for Spravato: Plan: - Resubmit appeal with clear documentation of patient's persistent depression since age 11, impairing their ability to work and complete daily tasks at home, and history of failed multiple medications Follow-up: - Schedule a follow-up appointment in 4-6 weeks to monitor patient's progress and response to treatment - Encourage patient to contact the clinic if there are any issues with medication refills or if symptoms worsen 09/10/2024 Other 1. Anxiety and depression: - Continue current medications as prescribed. Plan: - Monitor for any changes in mood or anxiety levels. - Consider alternative treatments such as Spravato, TMS, or VNS if insurance approval is obtained. - Follow up on insurance denial for Spravato and explore reasons for rejection. - Schedule a follow-up appointment in September to reassess the patient's condition and discuss further treatment options. 2. Memory issues: - Patient experiencing memory issues. Plan: - Continue monitoring for any worsening or improvement in memory. - Consider further evaluation for potential causes, such as Lyme disease, if memory issues persist or worsen. - Encourage the patient to maintain a healthy lifestyle, including regular sleep, exercise, and stress management, to potentially improve memory function. 3. Sleep disturbances and nightmares: - Continue Lunesta and prazosin as prescribed. Plan: - Encourage the patient to maintain good sleep hygiene and establish a consistent sleep schedule. - Monitor for any changes in sleep quality or frequency of nightmares. - Reassess the need for medication adjustments if sleep disturbances persist or worsen. 4. Self-harm urges: - Patient experiencing self-harm urges. Plan: - Encourage the patient to seek immediate help if urges to self-harm become overwhelming or unmanageable. - Monitor for any changes in the frequency or intensity of self-harm urges. - Consider referral to a therapist or support group for additional emotional support and coping strategies. 5. Insurance and medication coverage: Plan: - Follow up with insurance regarding the denial of Spravato coverage and explore reasons for rejection. - Investigate alternative treatment options and their insurance coverage, such as TMS or VNS. - Discuss the possibility of ketamine injections with Dr. Tomas, keeping in mind that they may not be covered by insurance. 10/08/2024 Other 1. Major Depressive Disorder, moderate to severe: - Continue lamotrigine 100 mg, one and a half daily - Continue Lexapro 30 mg daily Plan: - Monitor for increased suicidal ideation and discuss with patient - Consider alternative treatments if insurance coverage for Spravato changes or new options become available 2. Post-Traumatic Stress Disorder: - Continue prazosin 2 mg at bedtime Plan: - Encourage patient to seek therapy or counseling for trauma responses and coping strategies - Monitor for increased flashbacks and anxiety related to work environment 3. Anxiety: - Continue Lexapro 30 mg daily Plan: - Encourage patient to utilize stress management techniques and consider therapy for additional support - Monitor for increased anxiety related to work environment and supervisor [employer] interactions 4. Headaches: - Continue Imitrex as needed for headaches Plan: - Monitor for side effects, including changes in heart rate - Encourage patient to track headache frequency and triggers 5. Insomnia: - Continue Lunesta as prescribed Plan: - Encourage patient to practice good sleep hygiene and consider non-pharmacolog ical interventions for sleep improvement 6. Medication management: Plan: - No refills needed at this time - Monitor patient's response to current medications and adjust as necessary - Reevaluate insurance coverage for Spravato and explore alternative treatment options if needed 11/02/2024 Other Jewell Cedeño, female patient with history of depression and anxiety, presenting with worsening symptoms, suicidal thoughts without intent, and decreased libido. Major Depressive Disorder with Anxiety Assessment: Patient reports exacerbation of depressive symptoms and anxiety, which appear to be significantly impacted by her current job situation. She describes feeling very down and having suicidal thoughts, but no intent to act on them. The patient's partner has noticed a change in her affect, noting she doesn't genuinely smile when you're not laughing like you used to. 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 The current medication regimen, including Lexapro, Auvelity (bupropion + dextromethorpha n), lamotrigine, Lunesta, and prazosin, may need adjustment as the patient is not experiencing significant improvement in symptoms. Plan: - Discontinue Lexapro: Taper to 5 mg PO daily for 4 days, then stop - Continue current doses of Auvelity, lamotrigine, Lunesta, and prazosin - Encourage patient to continue exploring new job opportunities to reduce work-related stress - Discuss potential use of Helpa miranda for additional depression management - Follow-up appointment in one month Sexual Dysfunction Assessment: Patient reports decreased libido, which is impacting her relationship. This symptom is likely multifactorial, potentially due to both the SSRI (Lexapro) and increased stress levels related to work. The decision to discontinue Lexapro is partly based on this side effect, as SSRIs are known to commonly cause changes in sexual function. Plan: - Discontinue Lexapro as outlined above - Monitor for improvement in libido following Lexapro discontinuation - Reassess sexual function at follow-up appointment the note is transcribed using speech recognition software. It is a reflection of a visit with the patient. It might have some inaccuracy, including medication names and transcribing errors, though efforts have been made to correct them. 12/07/2024 Brett Cedeño presents with ongoing anxiety and work-related stress, reporting recent medication changes and sleep disturbances. Anxiety Assessment: Patient reports ongoing anxiety, particularly related to work stress. The patient describes feeling pressure in her chest building and characterizes her recent experiences as anxiety-ridden . While the anxiety is described as situational and hasn't been as bad, it remains a significant concern. The patient's boss has offered accommodations, including potential changes to work hours, after learning of the patient's consideration of leaving her job. Plan: - Continue Auvelity twice daily for depression - Continue lamotrigine 150 mg daily (1.5 tablets of 100 mg) for mood stabilization - Continue prazosin 2 mg at bedtime - Discontinue Lexapro (previously stopped) - Follow up in one month Sleep Disturbance Assessment: Patient reports recent changes in sleep patterns. She was sleeping well but experienced disruption when her partner (Jhonny) left with [employer]. The patient expresses concern about managing for the next 4 weeks during this absence. Plan: - Continue current sleep medication regimen (specific medications not discussed) - Reassess sleep quality at follow-up appointment the note is transcribed using speech recognition software. It is a reflection of a visit with the patient. It might have some inaccuracy, including medication names and transcribing errors, though efforts have been made to correct them. 01/04/2025 Brett Cedeño, female patient with history of depression and suicidal ideation, presenting with work-related stress and mood symptoms. Major Depressive Disorder with Suicidal Ideation Assessment: Patient reports ongoing depressive symptoms, including suicidal ideation without plan. She experiences lack of motivation, particularly in the mornings, and has episodes of crying. Work-related stress appears to be exacerbating her symptoms. Patient mentions a history of suicidal ideation throughout most of her life. Recent medication changes have resulted in improved libido, but overall mood symptoms persist. Plan: - Continue current medication regimen - Explore possibility of Spravato treatment pending insurance coverage - Encourage patient to pursue job change or discuss hour modification with supervisor [employer] - Follow up on potential work schedule change to 06/26 8 - Advise on importance of maintaining social connections, particularly with partner - Consider referral for additional psychosocial support or therapy - Schedule follow-up appointment to reassess symptoms and medication efficacy Occupational Stress Assessment: Patient reports significant work-related stress, describing her job as cyclically appealing and then horrible. This stress is contributing to her depressive symptoms and affecting her daily functioning, including sleep patterns and social interactions. 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 It is a reflection of a visit with the patient. It might have some inaccuracy, including medication names and transcribing errors, though efforts have been made to correct them. 02/08/2025 Other Jewell Cedeño, female patient with a history of depression and anxiety, presents with ongoing work-related stress and concerns about her upcoming wedding and future family planning. Major Depressive Disorder Assessment: Patient reports ongoing depressive symptoms, primarily related to work stress. She acknowledges improvement with current medication regimen, noting a reduction in suicidal ideation. However, she still experiences periodic existential questioning and mood fluctuations. The patient's upcoming wedding (March 02) is contributing to her stress levels. She expresses concerns about potential depression risk in the future. Plan: - Continue current medication regimen: - Lamotrigine - Auvelity - Lunesta - Prazosin - Advised against splitting Lunesta tablets as per medication guidelines - Refills to be processed as requested by patient - Continue monitoring for mood changes and suicidal ideation Insomnia Assessment: Patient reports difficulty waking up for early meetings when taking Lunesta. However, she acknowledges that without Lunesta, she is unable to sleep at all. The medication has been very helpful in managing her insomnia. Plan: - Continue Lunesta at bedtime - Educate patient on proper administration of Lunesta (swallow whole, not split, crushed, or chewed) - Monitor for ongoing sleep difficulties and medication effectiveness Anxiety Assessment: Patient expresses anxiety about her upcoming wedding and future family planning, particularly concerns about potential depression due to her mental health history. Plan: - Continue current medication regimen - Provide supportive counseling regarding wedding-related stress and family planning concerns - Discuss strategies for managing anxiety related to future and period the note is transcribed using speech recognition software. It is a reflection of a visit with the patient. It might have some inaccuracy, including medication names and transcribing errors, though efforts have been made to correct them. 04/05/2025 Other Jewell Cedeño, recently and newly , presents with concerns about medication management during and potential changes in mental health. Medication management during Assessment: Patient is approximately 3 weeks , conceived during her recent honeymoon. Current medications include lamotrigine, Auvelity (bupropion/dextro methorphan), prazosin, and Lunesta. Lamotrigine is considered safe during . Auvelity's bupropion component is deemed safe, but there is insufficient research on the dextromethorphan component. Lunesta and prazosin are not recommended during . There are concerns about potential worsening of depression upon discontinuation of Auvelity. Plan: - Discontinue Auvelity - Discontinue Lunesta - Discontinue prazosin 2 mg - Continue lamotrigine, adjust dosage to 100 mg PO BID (total daily dose 200 mg) - Consider switching to an SSRI (e.g., Zoloft, Prozac) if needed for depression management - Advise patient to consult with [facility] regarding previously taken medications - Monitor for worsening depression symptoms - Utilize non-pharmacologic al interventions to manage mood and sleep issues the note is transcribed using speech recognition software. It is a reflection of a visit with the patient. It might have some inaccuracy, including medication names and transcribing errors, though efforts have been made to correct them. 05/03/2025 Brett Cedeño, 9 weeks , presenting with severe nausea, vomiting, and worsening mental health including daily meltdowns and suicidal thoughts. -related nausea and vomiting Assessment: Patient reports severe nausea and vomiting throughout the day, describing it as like being on a boat in the middle of a hurricane. This has led to dehydration and difficulty taking medications. Recently prescribed Zofran by OB, but has not started it yet. Currently using Unisom, which is ineffective. The severity of symptoms is impacting mental health and ability to take psychiatric medications. Plan: - Start ondansetron (Zofran) as prescribed by OB - Use ondansetron sparingly as advised by OB Major Depressive Disorder with suicidal ideation Assessment: Patient reports significant worsening of mental health in the past few weeks, including daily meltdowns and recurrence of suicidal thoughts. Partner has implemented safety measures at home. OB recently restarted Lexapro due to severity of symptoms, prioritizing mental health stability over potential risks. However, patient has been unable to tolerate the medication due to severe nausea and vomiting. Plan: - Restart escitalopram (Lexapro) at 5 mg PO daily for one week, then increase to 10 mg PO daily as tolerated - Take escitalopram with ondansetron if needed to manage nausea - Adjust timing of escitalopram dose based on nausea patterns - Follow up in 1 month the note is transcribed using speech recognition software. It is a reflection of a visit with the patient. It might have some inaccuracy, including medication names and transcribing errors, though efforts have been made to correct them. 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
--- OUTSIDE RECORDS SUMMARY | 2025-06-03 19:29 | XMS_ITS | Patient Health Record ---
Author Organization [facility] Address [address] [place] [address] Care Team Providers Care Post Partum Nurse Name Role Phone [place] Primary Care Provider Reason For Referral No Information Immunizations Vaccine Route Administration Date Status Comme nts COVID-19 Moderna 1ST IM Intramuscular 08/13/2020 Administered EUA provided. Screener reviewed and consent signed. Pt tolerated well. COVID-19 Moderna 1ST IM Intramuscular 09/11/2020 Administered EUA provided. Screening and consent reviewed and signed. Pt tolerated well. Plan Of Treatment No Information
[2025-06-03 21:18] LABS: BEDSIDEPREGUCG Positive (Negative)
[2025-06-03 21:19] LABS: Hematocrit 36.7 % (37.0-47.0); Hemoglobin 12.4 g/dL (12.0-15.0); Immature Granulocyte Percent A 0.5 % (0-0.5); Lymphocytes Absolute Auto 1.83 K/mm3 (0.9-3.2); Mean Corpuscular HGB Conc 33.8 g/dl (32-36); Mean Corpuscular Hemoglobin 28.6 pg (26-34); Mean Corpuscular Volume 84.6 fl (80-100); Nucleated Red Blood Cells Absolute Auto 0.000 K/mm3 (0.0-0.012); Nucleated Red Blood Cells Perc 0.0 % (0.0-0.2); Platelet Count Result 333 k/mm3 (150-375); Red Blood Count 4.34 M/mm3 (4.2-5.4); White Blood Count 15.5 K/mm3 (4.5-10.0)
[2025-06-03 21:31] LABS: Alanine Aminotransferase 13 U/L (6-35); Albumin Level 4.4 g/dL (3.5-5.1); Alkaline Phosphatase 56 U/L (38-126); Anion Gap 11 mmol/L (4-12); Aspartate Amino Transferase 24 U/L (14-36); Bilirubin,Total 0.6 mg/dL (0.2-1.3); Blood Urea Nitrogen 10 mg/dL (7-17); Calcium 9.6 mg/dL (8.4-10.2); Carbon Dioxide 19 mmol/L (22-30); Chloride 103 mmol/L (98-107); Estimated Glomerular Filt Rate > 60; Glucose 105 mg/dL (65-110); Lipase 29 U/L (23-300); Potassium 4.1 mmol/L (3.4-5.0); Sodium 133 mmol/L (137-145); Total Protein 7.9 g/dL (6.3-8.2)
[2025-06-03 21:35] LABS: Add Urine Microscopic? YES; Appearance Urine Cloudy (Clear); Glucose Urine UA Negative (Negative); Leukocyte Esterase Ur Trace LEU/UL (Negative); Need Manual Microscopic Reviewed; Nitrate Urine Negative (Negative); Non Pathogenic Casts 0-2; Specific Grav Ur 1.020 (1.001-1.035)
[2025-06-03] MEDS: METOCLOPRAMIDE HCL INJ 10 MG/2 ML VIAL IV PUSH (22:23)
[2025-06-03] MEDS: LACTATED RINGERS 1,000 ML 999 ML IV CONT ×2 (22:32→23:42)
--- NOTE | 2025-06-03 23:53 | ED.NAVMDI ---
HPI - Nausea/Vomiting/Diarrhea General Chief complaint: Nausea/Vomiting/Diarrhea Stated complaint: 13 weeks -N/V Time Seen by Provider: 06/03/25 22:15 Source: patient Mode of arrival: ambulatory Limitations: no limitations History of Present Illness HPI Narrative: This is a 35 year old female that presents to the ER for nausea and vomiting. Reports she is about 13 weeks , follows with Dr. Guido. She tried re-starting her depression medication and has not been able to stop vomiting. Presents for IV fluids. Denies pelvic cramping, vaginal bleeding. Related Data Home Medications ?Medication ?Instructions ?Recorded ?Confirmed ?Last Taken ?Type lamotrigine 100 mg tablet 150 mg PO DAILY 02/25/23 07/25/24 Unknown History prazosin 1 mg capsule 2 mg PO DAILY 02/25/23 07/25/24 Unknown History dextromethorphan IR 45 1 tablet PO BID 07/25/24 07/25/24 Unknown History mg-bupropion ER 105 mg biphasic tablet (Auvelity) escitalopram oxalate 10 mg tablet 10 mg PO DAILY 07/25/24 07/25/24 Unknown History eszopiclone 2 mg tablet (Lunesta) 2 mg PO QHS 07/25/24 07/25/24 Unknown History Allergies Allergy/AdvReac Type Severity Reaction Status Date / Time No Known Allergies Allergy Verified 07/25/24 14:26 Review of Systems Review of Systems: All systems reviewed & are unremarkable except as noted in HPI and below PMFSH Past Medical History Medical History (Updated 06/03/25 @ 23:55 by Faiza Kennedy PA-C) Bipolar 2 disorder Social History Social History Smoking status: Never smoker Alcohol intake: current Substance use: never Substance use type: does not use Lack of Transportation: No Lack of Food: Never True Current Housing: I Have Housing Concerned About Future Housing: No Difficulty Paying Gas/Electric Bills: No Difficulty Paying for Meds: No Currently Unemployed: No Education: Bachelor's Degree Difficulty w/ Childcare or Family Care: No Living arrangements: alone Occupation/Education: occupation Gender identity (if verbalized by the patient): Female Sexual Orientation (if Verbalized by the Patient): Straight or Heterosexual Exam Narrative: GENERAL: Well-appearing, well-nourished, and in no acute distress. HEAD: Normocephalic, atraumatic. EYES: EOMI. CHEST: Clear to auscultation. No respiratory distress. No wheezes rales or rhonchi HEART: Regular rate and rhythm. No murmur heard. Normal peripheral pulses. ABDOMEN: Soft, nontender, nondistended, normal active bowel sounds. EXTREMITIES: Normal range of motion. No edema. SKIN: Warm, dry, no rash. NEURO: No focal deficits. Alert and oriented x3. PSYCH: Normal mood and affect Course Vital Signs Vital signs: Vital Signs Temperature 97.5 F L 06/03/25 19:15 Pulse Rate 83 06/03/25 19:15 Respiratory Rate 18 06/03/25 19:15 Blood Pressure 112/71 06/03/25 19:15 Pulse Oximetry 98 06/03/25 19:15 Oxygen Delivery Room Air 06/03/25 19:15 Temperature 97.5 F L 06/03/25 19:15 Pulse Rate 83 06/03/25 19:15 Respiratory Rate 18 06/03/25 19:15 Blood Pressure 112/71 06/03/25 19:15 Pulse Oximetry 98 06/03/25 19:15 Oxygen Delivery Room Air 06/03/25 19:15 Procedures Other Procedure Procedure 1: Other Procedure: Bedside ultrasound showed does positive activity and cardiac motion. MDM - Nausea/Vomiting/Diarrhea MDM Narrative Medical decision making narrative: Patient presents the emergency department for nausea and vomiting . She is afebrile and nontoxic appearing. Her vitals are stable. CBC with leukocytosis, likely due to vomiting. Metabolic panel without concerning findings. Urine with evidence of dehydration. Patient hydrated with 2 L of IV fluids. White blood cells noted, patient does not have any urinary symptoms. Will send for culture. Bedside ultrasound showed does positive activity and cardiac motion. Patient feeling improved. Will follow up with Ob Differential Diagnosis Differential diagnosis: Likely drug-induced nausea and vomiting, dehydration and other (electrolyte derangement) Lab Data Attestation: I reviewed the patient's lab results. 06/03/25 21:12 06/03/25 21:12 Labs: Lab Results 06/03/25 06/03/25 Range/Units 21:12 21:15 WBC 15.5 H (4.5-10.0) K/mm3 RBC 4.34 (4.2-5.4) M/mm3 Hgb 12.4 (12.0-15.0) g/dL Hct 36.7 L (37.0-47.0) % MCV 84.6 (80-100) fl MCH 28.6 (26-34) pg MCHC 33.8 (32-36) g/dl RDW 12.2 (11.5-14.5) % Plt Count 333 (150-375) k/mm3 MPV 10.6 H (7.4-10.4) fl Immature Gran % (Auto) 0.5 (0-0.5) % Neut % (Auto) 81.9 H (45.5-73.1) % Lymph % (Auto) 11.8 L (18.3-44.2) % [place] % (Auto) 5.4 (2.6-8.5) % Eos % (Auto) 0.1 (0-4.4) % Baso % (Auto) 0.3 (0.2-1.2) % Lymph # (Auto) 1.83 (0.9-3.2) K/mm3 [place] # (Auto) 0.8 H (0.1-0.6) K/mm3 Eos # (Auto) 0.0 (0-0.3) K/mm3 Baso # (Auto) 0.0 (0.0-0.1) K/mm3 Abs Immat Gran (auto) 0.08 H (0.00-0.031) K/mm3 Absolute Neuts (auto) 12.7 H (1.3-6.7) K/mm3 Absolute Nucleated RBC 0.000 (0.0-0.012) K/mm3 Nucleated RBC % 0.0 (0.0-0.2) % Sodium 133 L (137-145) mmol/L Potassium 4.1 (3.4-5.0) mmol/L Chloride 103 (98-107) mmol/L Carbon Dioxide 19 L (22-30) mmol/L Anion Gap 11 (4-12) mmol/L BUN 10 (7-17) mg/dL Creatinine 0.47 L (0.7-1.0) mg/dL Estim Creat Clear Calc Not Reportable Estimated GFR > 60 (59 - ) Glucose 105 (65-110) mg/dL Calcium 9.6 (8.4-10.2) mg/dL Total Bilirubin 0.6 (0.2-1.3) mg/dL AST 24 (14-36) U/L ALT 13 (6-35) U/L Alkaline Phosphatase 56 (38-126) U/L Total Protein 7.9 (6.3-8.2) g/dL Albumin 4.4 (3.5-5.1) g/dL Lipase 29 (23-300) U/L Urine Color Yellow (Yellow) Urine Appearance Cloudy H (Clear) Urine pH 6.0 (5.0-9.0) Ur Specific [place] 1.020 (1.001-1.035) Urine Protein Trace (Negative) mg/dL Urine Glucose (UA) Negative (Negative) mg/dL Urine Ketones 4+ H (Negative) mg/dL Ur Blood (Man) Negative (Negative) Urine Nitrate Negative (Negative) Urine Bilirubin Negative (Negative) Urine Urobilinogen 0.2 (<2.0) mg/dL Add Ur Microanalysis Reviewed Leukocyte Esterase Rfl Trace H (Negative) VIANCA/UL Urine RBC 6-10 H (0-2) /hpf Urine WBC 6-10 H (0-3) /hpf Ur Squamous Epith Cells Few (Few) /hpf Urine Bacteria 1+ H /hpf Urine Casts 0-2 POC Urine HCG, Qual Positive (Negative) Critical Care Time Critical Care Time Critical Care Time: No Discharge Plan Discharge Clinical Impression: Nausea and vomiting during Patient Disposition: Home Condition: Improved Instructions: Acute Nausea and Vomiting (ED), at 11 to 14 Weeks (ED) Additional Instructions: Return to the ER if you experience fever, abdominal pain with nausea and vomiting, you are unable to keep down liquids or solids, pain or burning with urination, or any other symptoms that are concerning to you Small, frequent meals. [place] diet. Remain well hydrated Follow up with your OB Patient Language: [place] Citizen Prescriptions: No Action Auvelity 45-105 mg tablet,IR,delayed rel,biphasic 1 tablet PO BID lamotrigine 100 mg tablet 150 mg PO DAILY prazosin 1 mg capsule 2 mg PO DAILY escitalopram oxalate 10 mg tablet 10 mg PO DAILY Patient Comments: Patient takes this twice a day eszopiclone [Lunesta] 2 mg tablet 2 mg PO QHS sumatriptan succinate 100 mg tablet See Rx Instructions PO .COMPLEX Qty: 14 0RF Rx Instructions: take 1 tab at onset of headache; if no relief, may repeat 1 tab after at least 2 hrs; max = 2 tabs/24 hrs PO Follow-up/Referrals: Marco Bowden MD [Primary Care Provider, Family Practice]
[2025-06-04 01:07] VITALS: BP 120/82; PULSE 78; RESP 18; O2SAT 100
== END 2025-06-04 01:07 | disposition home or self-care (01) ==
PROVIDERS: Emergency Provider Physician Assistant; PCP Family Medicine
DX: O21.0 Mild hyperemesis gravidarum (principal); Z3A.13 13 weeks gestation of pregnancy
CPT/HCPCS: 36415; 80053; 81001; 81025; 83690; 85025; 87086; 96361; 96374; 96375; 99284; J1200; J2765; J7120

== ENCOUNTER 2025-07-09 15:18 | Outpatient (CLI) | payer BC, OTHER, SELFPAY ==
--- NOTE | ~2025-07-09 | US_ITS ---
EXAMINATION: US OB /maternal detail DATE: 07/09/2025 15:56 INDICATION: survey TECHNIQUE: Multiple obstetric sonographic images performed. FINDINGS: No prior studies for comparison. There is a single living fetus in vertex presentation. The placenta is anterior without placenta previa. Amniotic fluid volume is subjectively normal. Cervical length approximately 3 cm. cardiac activity and movement is noted with a heart rate of 138 beats per minute. The following anatomy was identified as normal: 4 chamber heart 3 vessel cord cord insertion kidneys urinary bladder stomach spine diaphragm ventricles cisterna magna cerebellum The following biometric data were obtained: BPD: 41mm corresponds to gestational age 18 weeks 3 days. Head circumference: 155 mm corresponds to gestational age 18 weeks 3 days. Abdominal circumference: 127 mm corresponds to gestational age 18 weeks 2 days. Femur length: 27 mm corresponds to gestational age 18 weeks 1 days. Head circumference to abdominal circumference ratio: 1.22 (normal range for expected gestational age is 1.08-1.27). Estimated weight: 232 grams +/- 35 grams using Hadlock method. IMPRESSION: 1: Single living intrauterine with an estimated gestational age of 18weeks 3days by initial ultrasound measurements, with an EDC of 12/07/2025 in vertex presentation. 2. Normal survey. Reviewed, dictated and finalized at location O. PLANNER IMPRESSION: 1: Single living intrauterine with an estimated gestational age of 18 weeks 3days by initial ultrasound measurements, with an EDC of 12/07/2025 in kristal keiko presentation. 2. Normal survey.
== END 2025-07-09 15:19 | disposition home or self-care (01) ==
LOC: MICIMG 15:23
PROVIDERS: PCP Family Medicine; Visit Provider Obstetrics & Gynecology Gynecology
DX: Z36.9 Encounter for antenatal screening, unspecified (principal); Z3A.18 18 weeks gestation of pregnancy
CPT/HCPCS: 76805